=== PATIENT | female | born 1990 | race Caucasian/White ===

== ENCOUNTER 2022-05-17 23:35 | Inpatient (IN) | payer MEDICAID ==
[~2022-05-17] VITALS: Ht 175.3 cm; Wt 120.2 kg
[2022-05-18 00:04] VITALS: BP 131/71
[2022-05-18] MEDS ORDERED: PNV1TABL5 PO (00:13)
[2022-05-18] MEDS ORDERED: METHYLERGONOVINE 0.2 MG/ML AMP IM PRN (00:15)
[2022-05-18] MEDS ORDERED: CARBOPROST 250 MCG/ML AMP IM PRN (00:15)
[2022-05-18] MEDS ORDERED: OXYTOCIN 20 UNITS in LACTATED RINGERS 1,000 ML IV SCH (00:15)
[2022-05-18] MEDS ORDERED: ONDANSETRON 4 MG/2 ML VIAL IVP PRN (00:15)
[2022-05-18] MEDS ORDERED: BLOOD GLUCOSE MONITORING 1 DEV DEV FS SCH ×2 (00:15→04:00)
[2022-05-18] MEDS ORDERED: MORPHINE SULFATE 5 MG/ML VIAL IVP PRN (00:15)
[2022-05-18] MEDS ORDERED: LACTATED RINGERS 500 ML IV SCH (00:15)
[2022-05-18 00:44] LABS: APPEARANCE,URINE CLOUDY (CLEAR); BILIRUBIN,URINE NEGATIVE (NEGATIVE); BLOOD, URINE NEGATIVE (NEGATIVE); COLOR,URINE YELLOW (YELLOW); LEUKOCYTE ESTERASE ,URINE NEGATIVE (NEGATIVE); NITRITE, URINE NEGATIVE (NEGATIVE); PH,URINE 5.5 (5.0-9.0); UGLUCOSE TRACE (NEGATIVE)
[2022-05-18 00:45] LABS: BASOPHILS % (AUTO) 0.4 % (0.0-2.0); EOSINOPHILS # (AUTO) 0.1 K/uL (0-0.4); EOSINOPHILS % (AUTO) 0.6 % (0.0-4.0); HEMATOCRIT 34.6 % (36-48); LYMPHOCYTES # (AUTO) 1.9 K/uL (2.5-16.5); LYMPHOCYTES % (AUTO) 20.6 % (20.5-51.1); MEAN CORPUSCULAR HEMOGLOBIN 30 pg (27-31); MEAN CORPUSCULAR HGB CONC 35 g/dL (33-37); MEAN CORPUSCULAR VOLUME 86.5 fL (80-94); MONOCYTES # (AUTO) 0.5 K/uL (0.8-1.0); MONOCYTES % (AUTO) 5.5 % (1.7-9.3); NEUTROPHILS # (AUTO) 6.8 K/uL (1.8-7.7); NEUTROPHILS % (AUTO) 72.9 % (42.2-75.2); PLATELET COUNT (AUTO) 181 K/uL (140-450); WHITE BLOOD COUNT (AUTO) 9.3 K/uL (4.8-10.8)
[2022-05-18 00:59] LABS: PROTHROMBIN TIME 9.5 secs (10.8-13.4)
[2022-05-18 01:01] LABS: ANION GAP 14.5 (8-16); CARBON DIOXIDE 22.4 mmol/L (21-32); CREATININE 0.5 mg/dL (0.6-1.3); POTASSIUM 3.9 mmol/L (3.5-5.1); TOTAL BILIRUBIN 0.4 mg/dL (0.0-1.0)
[2022-05-18] MEDS: LACTATED RINGERS 1,000 ML IV SCH ×4 (01:32→19:26)
[2022-05-18] MEDS: MISOPROSTOL 25 MCG TAB VG SCH ×4 (02:37→20:58)
[2022-05-18] MEDS: INSULIN LISPRO SLIDING SCALE 100 UNITS/ML VIAL SUBQ PRN ×3 (09:02→20:54)
--- NOTE | 2022-05-18 09:18 | NUR ---
PATIENT HAS BEEN SCREENED AND CATEGORIZED LOW NUTRITION RISK. PATIENT WILL BE SEEN WITHIN 7 DAYS OF ADMISSION. 05/24/22 REVIEWED BY VIRAL CHARLTON [address]
[2022-05-19] MEDS: LACTATED RINGERS 1,000 ML IV SCH ×3 (03:51→17:10)
[2022-05-19] MEDS: MISOPROSTOL 25 MCG TAB VG SCH ×2 (06:45→13:20)
[2022-05-19] MEDS: INSULIN LISPRO SLIDING SCALE 100 UNITS/ML VIAL SUBQ PRN ×3 (09:09→21:25)
[2022-05-19] MEDS ORDERED: OXYTOCIN 20 UNITS/LR PREMIX 1,000 ML IV ONE (18:11)
[2022-05-20] MEDS: LACTATED RINGERS 1,000 ML IV SCH ×4 (01:34→17:47)
[2022-05-20] MEDS ORDERED: MORPHINE SULFATE 10 MG/ML VIAL ONE (03:35)
[2022-05-20 03:41] VITALS: BP 116/60
[2022-05-20] MEDS ORDERED: LIDOCAINE 1% 500 MG/50 ML VIAL ONE (10:43)
[2022-05-20] MEDS ORDERED: LIDOCAINE MPF 2% 100 MG/5 ML VIAL INJ ONE (10:44)
[2022-05-20] MEDS ORDERED: LIDOCAINE 2% 1000 MG/50 ML VIAL INJ SCH (10:55)
[2022-05-20] MEDS ORDERED: fentaNYL citrate 0.05 MG/ML VIAL ONE (11:03)
[2022-05-20] MEDS ORDERED: ROPIVACAINE 0.2%/NS PREMIX 200 ML EPI ONE (11:04)
[2022-05-21] MEDS ORDERED: ROPIVACAINE 0.2%/NS PREMIX 200 ML EPI ONE (00:23)
[2022-05-21] MEDS ORDERED: OXYTOCIN 20 UNITS/LR PREMIX 1,000 ML IV ONE ×4 (02:24→20:46)
[2022-05-21] MEDS: LACTATED RINGERS 1,000 ML IV SCH (04:49)
[2022-05-21] MEDS ORDERED: LIDOCAINE MPF 2% 100 MG/5 ML VIAL INJ ONE (10:33)
[2022-05-21] MEDS ORDERED: MIDAZOLAM 2 MG/2 ML VIAL ONE (10:34)
[2022-05-21] MEDS ORDERED: MORPHINE PRES FREE 10 MG/10 ML AMP IV ONE (10:39)
[2022-05-21] MEDS ORDERED: diphenhydrAMINE 50 MG/ML VIAL ONE (10:55)
[2022-05-21] MEDS ORDERED: METHYLERGONOVINE 0.2 MG/ML AMP ONE (11:00)
[2022-05-21] MEDS ORDERED: diphenhydrAMINE 50 MG/ML VIAL IVP PRN ×2 (11:15)
[2022-05-21] MEDS ORDERED: NALOXONE 0.4 MG/ML VIAL IVP PRN ×4 (11:15→14:45)
[2022-05-21] MEDS ORDERED: ONDANSETRON 4 MG/2 ML VIAL IVP PRN ×2 (11:15)
[2022-05-21] MEDS ORDERED: MEPERIDINE 25 MG/ML SYR IVP PRN (11:15)
[2022-05-21] MEDS ORDERED: HYDROmorphone 1 MG/ML AMP IVP PRN ×2 (11:15→16:30)
[2022-05-21] MEDS ORDERED: BLOOD GLUCOSE MONITORING 1 DEV DEV FS SCH (11:15)
[2022-05-21] MEDS ORDERED: NALBUPHINE 10 MG/ML AMP IVP PRN (11:15)
[2022-05-21] MEDS ORDERED: OXYTOCIN 20 UNITS in LACTATED RINGERS 1,000 ML IV SCH ×2 (11:15→14:45)
[2022-05-21] MEDS ORDERED: KETOROLAC 30 MG/ML VIAL IM/IVP SCH (12:00)
[2022-05-21] MEDS ORDERED: MEASLES, MUMPS, AND RUBELLA 1 VIAL SQVAC ONE (14:45)
[2022-05-21] MEDS ORDERED: CARBOPROST 250 MCG/ML AMP IM PRN (14:45)
[2022-05-21] MEDS ORDERED: METHYLERGONOVINE 0.2 MG/ML AMP IM PRN ×2 (14:45)
[2022-05-21] MEDS ORDERED: OXYTOCIN 10 UNITS in LACTATED RINGERS 1,000 ML IV SCH (14:45)
[2022-05-21] MEDS ORDERED: oxyCODONE/APAP 5/325 MG 1 TAB TAB PO PRN (14:45)
[2022-05-21] MEDS ORDERED: MEASLES, MUMPS, AND RUBELLA 1 VIAL SQVAC SCH (15:05)
[2022-05-21] MEDS: KETOROLAC 30 MG/ML VIAL IM/IVP SCH (18:58)
[2022-05-21] MEDS: OXYTOCIN 20 UNITS in LACTATED RINGERS 1,000 ML IV SCH (21:22)
[2022-05-22] MEDS: KETOROLAC 30 MG/ML VIAL IM/IVP SCH (00:58)
[2022-05-22] MEDS ORDERED: OXYTOCIN 20 UNITS/LR PREMIX 1,000 ML IV ONE (05:39)
[2022-05-22] MEDS: OXYTOCIN 20 UNITS in LACTATED RINGERS 1,000 ML IV SCH (05:43)
[2022-05-22] MEDS: oxyCODONE/APAP 5/325 MG 1 TAB TAB PO PRN ×4 (06:38→22:07)
[2022-05-22 07:48] LABS: BASOPHILS % (AUTO) 0.1 % (0.0-2.0); EOSINOPHILS % (AUTO) 0.2 % (0.0-4.0); HEMATOCRIT 28.7 % (36-48); HEMOGLOBIN 9.7 g/dL (12.0-16.0); LYMPHOCYTES # (AUTO) 0.8 K/uL (2.5-16.5); MEAN CORPUSCULAR HEMOGLOBIN 30 pg (27-31); MEAN CORPUSCULAR HGB CONC 34 g/dL (33-37); MEAN CORPUSCULAR VOLUME 87.4 fL (80-94); MONOCYTES # (AUTO) 0.5 K/uL (0.8-1.0); MONOCYTES % (AUTO) 5.3 % (1.7-9.3); NEUTROPHILS # (AUTO) 7.7 K/uL (1.8-7.7); NEUTROPHILS % (AUTO) 85.4 % (42.2-75.2); PLATELET COUNT (AUTO) 140 K/uL (140-450); RED BLOOD CELL COUNT(AUTO) 3.28 MIL/uL (4.20-5.40); RED CELL DISTRIBUTION WIDTH 15.5 % (11.6-13.7); WHITE BLOOD COUNT (AUTO) 8.9 K/uL (4.8-10.8)
[2022-05-22] MEDS: SIMETHICONE 80 MG TAB.CHEW PO PRN ×2 (12:47→17:58)
[2022-05-22] MEDS: IBUPROFEN 800 MG TAB PO PRN (14:23)
[2022-05-23] MEDS ORDERED: CAMERA MC ONE (01:52)
[2022-05-23] MEDS: oxyCODONE/APAP 5/325 MG 1 TAB TAB PO PRN ×3 (04:36→23:23)
[2022-05-23] MEDS: SIMETHICONE 80 MG TAB.CHEW PO PRN ×2 (04:37→12:02)
[2022-05-23] MEDS: IBUPROFEN 800 MG TAB PO PRN ×2 (07:48→17:07)
[2022-05-23] MEDS: bisacodyL 10 MG SUPP RC SCH (09:00)
[2022-05-24] MEDS ORDERED: CAMERA MC ONE (01:57)
[2022-05-24] MEDS: oxyCODONE/APAP 5/325 MG 1 TAB TAB PO PRN ×3 (03:37→11:47)
[2022-05-24] MEDS: bisacodyL 10 MG SUPP RC SCH (07:46)
[2022-05-24] MEDS: SIMETHICONE 80 MG TAB.CHEW PO PRN (07:48)
== END 2022-05-24 12:25 | disposition home or self-care (01) | DRG 540 ==
LOC: MLD 23:35 → MFCC 05-21 13:45
PROVIDERS: ADMIT Obstetrics & Gynecology; ATTEND Obstetrics & Gynecology
PROC: 0UB10ZZ Excision of Left Ovary, Open Approach (ICD-10-PCS; 2022-05-21)
PROC: 10D00Z1 Extraction of Products of Conception, Low, Open Approach (ICD-10-PCS; principal; 2022-05-21 10:30)
DX: O24.424 Gestational diabetes mellitus in childbirth, insulin controlled (principal); O61.9 Failed induction of labor, unspecified; D64.9 Anemia, unspecified; O90.81 Anemia of the puerperium; E66.01 Morbid (severe) obesity due to excess calories; O99.214 Obesity complicating childbirth; O36.63X0 Maternal care for excessive fetal growth, third trimester, not applicable or unspecified; Z37.0 Single live birth; Z3A.38 38 weeks gestation of pregnancy; N83.202 Unspecified ovarian cyst, left side; Z20.822 Contact with and (suspected) exposure to COVID-19; O34.83 Maternal care for other abnormalities of pelvic organs, third trimester; Z91.199 Patient's noncompliance with other medical treatment and regimen due to unspecified reason
CPT/HCPCS: 36415; 51702; 59200; 76815; 80053; 81003; 82948; 85025; 85610; 85730; 86592; 86886; 86900; 86901; 88307; J0690; J1200; J1815; J1885; J2001; J2210; J2250; J2270; J2405; J2590; J2795; J3010; J7060; J7120; Q0092